=== PATIENT | male | born 1990 | race Two or more races ===

== ENCOUNTER 2018-08-09 19:48 | Emergency (ER) | payer BC ==
[~2018-08-09] VITALS: Ht 180.3 cm; Wt 102.3 kg
[2018-08-09] MEDS ORDERED: TRAZ-219 PO (20:10)
[2018-08-09] MEDS ORDERED: FLUO-191 PO (20:10)
[2018-08-09 21:19] LABS: AMPHET/METH SCREEN,URINE NEGATIVE (NEGATIVE); BARBITURATE SCREEN, URINE NEGATIVE (NEGATIVE); BENZODIAZEPINES SCREEN,URINE NEGATIVE (NEGATIVE); CANNABINOID SCREEN,URINE NEGATIVE (NEGATIVE); COCAINE SCREEN,URINE NEGATIVE (NEGATIVE); METHADONE SCREEN, URINE NEGATIVE (NEGATIVE); OPIATE SCREEN,URINE NEGATIVE (NEGATIVE); PHENCYCLIDINE SCREEN,URINE NEGATIVE (NEGATIVE)
[2018-08-09] MEDS ORDERED: HydrOXYzine PAMOATE 25 MG CAPSULE PO ONE (21:45)
[2018-08-09 21:52] VITALS: BP 136/80
== END 2018-08-09 21:54 | disposition home or self-care (01) ==
LOC: EMS 19:49
DX: F41.9 Anxiety disorder, unspecified (principal); F20.9 Schizophrenia, unspecified; F32.9 Major depressive disorder, single episode, unspecified; Z79.899 Other long term (current) drug therapy

== ENCOUNTER 2019-04-13 13:50 | Emergency (ER) | payer BC ==
[~2019-04-13 13:50] MED LIST: FLUO-191 PO; TRAZ-252 PO
== END 2019-04-13 13:59 | disposition left against medical advice (07) ==
LOC: EMS 13:50
DX: M79.646 Pain in unspecified finger(s) (principal); Z53.21 Procedure and treatment not carried out due to patient leaving prior to being seen by health care provider